=== PATIENT | female | born 1965 | race Caucasian/White ===

== ENCOUNTER → 2017-02-28 | Outpatient (CLI) | payer BC ==
[~2017-02-28] MED LIST: CYMBALTA60 MG PO; ENABLEX15 MG PO; EXCEDRIN TENSIO1 TAB PO; LOSARTAN POTAS100 MG PO; MOBIC15 MG PO; OMEPRAZOLE20 MG PO; OXYBUTYNIN CHLOR5 MG PO; PRAVASTATIN40 MG PO; TOVIAZ8 MG PO; VITAMIN B COMPL1 TA3 PO; VITAMIN D32000 I1 PO
[2017-02-28 11:17] LABS: BUN 8 mg/dL (7-18)
[2017-02-28 11:40] LABS: GFR (ESTIMATED) 65 ML/MIN (59-)
== END ==
LOC: LAB 09:31
PROVIDERS: Physician Assistant
DX: E80.6 Other disorders of bilirubin metabolism (principal)